=== PATIENT | male | born 1935 | race Caucasian/White ===

== ENCOUNTER 2019-02-06 11:46 | Inpatient (IN) | payer MEDICARE ==
[~2019-02-06] VITALS: Ht 172.7 cm; Wt 86.5 kg
[~2019-02-06 11:46] MED LIST: AMLO2.5T78 PO; ASPI-817 PO; ATOR10TA65 PO; FINA5TAB4 PO; FLUT1BLS3 IH; MIRT15TA5 PO; MONT10TA24 PO; RIVA15TA PO; RIVA20TA5 PO; TERA10CA3 PO; VALS320T2 PO
[2019-02-06] MEDS ORDERED: HEPARIN 1000 UNITS/ML 10 ML INJ IV ONE ×2 (13:30→15:30)
[2019-02-06] MEDS ORDERED: HEPARIN 25000 UNITS/250 ML 250 ML IV SCH (13:30)
[2019-02-06] MEDS ORDERED: ACETAMINOPHEN 325 MG TAB PO PRN ×2 (15:00→15:30)
[2019-02-06] MEDS ORDERED: ONDANSETRON 4 MG INJ IV PRN (15:00)
[2019-02-06] MEDS ORDERED: LORAZEPAM 0.5 MG TAB PO PRN (15:30)
[2019-02-06] MEDS ORDERED: ZOLPIDEM 5 MG TAB PO PRN (15:30)
[2019-02-06] MEDS ORDERED: ONDANSETRON 4 MG TAB PO PRN (15:30)
[2019-02-06] MEDS ORDERED: NACL 0.9% 3 ML SYG IV SCH (15:30)
[2019-02-06 16:16] VITALS: Ht 172.7 cm; Wt 86.5 kg
[2019-02-06 16:21] VITALS: BP 117/65; PULSE 68; RESP 18
[2019-02-06] MEDS ORDERED: HEPARIN 1000 UNITS/ML 10 ML INJ IV PRN ×2 (16:30)
[2019-02-06] MEDS: HEPARIN 25000 UNITS/250 ML 250 ML IV SCH (17:39)
[2019-02-06 19:28] VITALS: BP 132/88; PULSE 63; RESP 18
[2019-02-06 19:46] VITALS: BP 128/64; PULSE 84; RESP 18
[2019-02-06] MEDS: MONTELUKAST 10 MG TAB PO SCH (20:49)
[2019-02-06] MEDS: ATORVASTATIN 10 MG TAB PO SCH (20:49)
[2019-02-06] MEDS: MIRTAZAPINE 15 MG TAB PO SCH (20:50)
[2019-02-06] MEDS: FINASTERIDE 5 MG TAB PO SCH (20:50)
[2019-02-06] MEDS: TERAZOSIN 5 MG CAP PO SCH (20:50)
[2019-02-06] MEDS: FAMOTIDINE 20 MG TAB PO SCH (20:50)
[2019-02-06] MEDS ORDERED: NON-FORMULARY/PATIENT OWN MED (Fluticasone/Umeclidin/Vilanter (Trelegy Ellipta 100-62.5-25 IH SCH (21:00)
[2019-02-06 23:19] VITALS: BP 116/66; PULSE 77; RESP 18
[2019-02-07 03:33] VITALS: BP 124/72; PULSE 67; RESP 18
[2019-02-07 07:26] VITALS: BP 126/60; PULSE 65; RESP 17
[2019-02-07] MEDS: HEPARIN 25000 UNITS/250 ML 250 ML IV SCH (08:04)
[2019-02-07] MEDS: FAMOTIDINE 20 MG TAB PO SCH ×2 (08:21→20:06)
[2019-02-07] MEDS: LOSARTAN 50 MG TAB PO SCH (08:21)
[2019-02-07] MEDS: AMLODIPINE 2.5 MG TAB PO SCH (08:22)
[2019-02-07] MEDS ORDERED: NON-FORMULARY/PATIENT OWN MED (Valsartan* (Diovan*) 320 MG) PO SCH (09:00)
[2019-02-07 11:30] VITALS: BP 107/58; PULSE 63; RESP 17
[2019-02-07] MEDS ORDERED: IOHEXOL 14.3 MG(I)/ML (ADULT) BTL PO ONE (11:30)
[2019-02-07 15:20] VITALS: BP 101/52; PULSE 71; RESP 17
[2019-02-07] MEDS ORDERED: IOHEXOL 300MG/ML 150 ML BTL ONE (17:36)
[2019-02-07] MEDS ORDERED: SOD CHLORIDE 0.9% 100 ML ONE (17:36)
[2019-02-07 20:00] VITALS: BP 147/75; PULSE 72; RESP 18
[2019-02-07] MEDS: FINASTERIDE 5 MG TAB PO SCH (20:06)
[2019-02-07] MEDS: ATORVASTATIN 10 MG TAB PO SCH (20:06)
[2019-02-07] MEDS: MONTELUKAST 10 MG TAB PO SCH (20:06)
[2019-02-07] MEDS: MIRTAZAPINE 15 MG TAB PO SCH (20:06)
[2019-02-07] MEDS: TERAZOSIN 5 MG CAP PO SCH (20:07)
[2019-02-08] VITALS: BP 120/68; PULSE 73; RESP 17
[2019-02-08 04:00] VITALS: BP 125/64; PULSE 74; RESP 18
[2019-02-08] MEDS: HEPARIN 25000 UNITS/250 ML 250 ML IV SCH ×2 (07:17→07:35)
[2019-02-08 07:53] VITALS: BP 135/78; PULSE 67; RESP 20
[2019-02-08] MEDS: AMLODIPINE 2.5 MG TAB PO SCH (10:25)
[2019-02-08] MEDS: LOSARTAN 50 MG TAB PO SCH (10:25)
[2019-02-08] MEDS: FAMOTIDINE 20 MG TAB PO SCH ×2 (10:26→20:10)
[2019-02-08 11:19] VITALS: BP 136/58; PULSE 64; RESP 20
[2019-02-08 15:51] VITALS: BP 143/69; PULSE 65; RESP 20
[2019-02-08 20:00] VITALS: BP 126/63; PULSE 71; RESP 18
[2019-02-08] MEDS: TRELEGY ELLIPTA (PATIENT'S OWN MED) INH SCH (20:09)
[2019-02-08] MEDS: MONTELUKAST 10 MG TAB PO SCH (20:10)
[2019-02-08] MEDS: ATORVASTATIN 10 MG TAB PO SCH (20:10)
[2019-02-08] MEDS: MIRTAZAPINE 15 MG TAB PO SCH (20:10)
[2019-02-08] MEDS: TERAZOSIN 5 MG CAP PO SCH (20:10)
[2019-02-08] MEDS: FINASTERIDE 5 MG TAB PO SCH (20:10)
[2019-02-08] MEDS ORDERED: NON-FORMULARY/PATIENT OWN MED (Fluticasone/Umeclidin/Vilanter (Trelegy Ellipta 100-62.5-25 IH SCH (21:00)
[2019-02-09] VITALS: BP 124/70; PULSE 54; RESP 17
[2019-02-09 04:00] VITALS: BP 120/75; PULSE 58; RESP 18
[2019-02-09] MEDS: HEPARIN 25000 UNITS/250 ML 250 ML IV SCH (07:20)
[2019-02-09 07:21] VITALS: BP 129/77; PULSE 71; RESP 17
[2019-02-09] MEDS: FAMOTIDINE 20 MG TAB PO SCH ×2 (09:38→20:16)
[2019-02-09] MEDS: LOSARTAN 50 MG TAB PO SCH (09:39)
[2019-02-09] MEDS: AMLODIPINE 2.5 MG TAB PO SCH (09:39)
[2019-02-09] MEDS: DOCUSATE SODIUM 100 MG CAP PO PRN (09:39)
[2019-02-09 11:23] VITALS: BP 131/77; PULSE 67; RESP 17
[2019-02-09 15:25] VITALS: BP 132/68; PULSE 71; RESP 17
[2019-02-09] MEDS: RIVAROXABAN 15 MG TABLET PO SCH (18:28)
[2019-02-09 19:44] VITALS: BP 128/65; PULSE 73; RESP 20
[2019-02-09] MEDS: FINASTERIDE 5 MG TAB PO SCH (20:15)
[2019-02-09] MEDS: MIRTAZAPINE 15 MG TAB PO SCH (20:15)
[2019-02-09] MEDS: ATORVASTATIN 10 MG TAB PO SCH (20:15)
[2019-02-09] MEDS: TERAZOSIN 5 MG CAP PO SCH (20:16)
[2019-02-09] MEDS: MONTELUKAST 10 MG TAB PO SCH (20:16)
[2019-02-09] MEDS: TRELEGY ELLIPTA (PATIENT'S OWN MED) INH SCH (20:57)
[2019-02-10] VITALS: BP 104/58; PULSE 64; RESP 19
[2019-02-10 04:00] VITALS: BP 125/72; PULSE 60; RESP 20
[2019-02-10 07:16] VITALS: BP 134/62; PULSE 63; RESP 17
[2019-02-10] MEDS: RIVAROXABAN 15 MG TABLET PO SCH (09:12)
[2019-02-10] MEDS: DOCUSATE SODIUM 100 MG CAP PO PRN (09:13)
[2019-02-10] MEDS: LOSARTAN 50 MG TAB PO SCH (09:13)
[2019-02-10] MEDS: AMLODIPINE 2.5 MG TAB PO SCH (09:13)
[2019-02-10] MEDS: FAMOTIDINE 20 MG TAB PO SCH (09:13)
[2019-02-10 11:29] VITALS: BP 119/60; PULSE 80; RESP 17
[2019-02-10 15:25] VITALS: BP 144/68; PULSE 86; RESP 17
[2019-03-03] MEDS ORDERED: RIVAROXABAN 20 MG TABLET PO SCH (06:00)
== END 2019-02-10 16:45 | disposition home health service (06) | DRG 301 ==
LOC: E/R 11:46 → 6WM 14:55
PROVIDERS: ADMIT Internal Medicine; ATTEND Internal Medicine
DX: I82.412 Acute embolism and thrombosis of left femoral vein (principal); I82.432 Acute embolism and thrombosis of left popliteal vein; I10 Essential (primary) hypertension; N40.1 Benign prostatic hyperplasia with lower urinary tract symptoms; R39.12 Poor urinary stream; E78.5 Hyperlipidemia, unspecified; Z79.82 Long term (current) use of aspirin; Z87.891 Personal history of nicotine dependence
CPT/HCPCS: 36415; 71045; 74178; 80053; 84484; 85025; 85610; 85730; 93005; 93926; 93971; 96374; 97161; J1644; Q9967